=== PATIENT | female | born 1960 | race Caucasian/White ===

== ENCOUNTER 2021-07-26 13:35 | Outpatient (REF) | payer OTHER, SELFPAY ==
--- NOTE | ~2021-07-26 | XR_ITS ---
EXAMINATION: XR SHOULDER, RIGHT CLINICAL INFORMATION: M25.511 - Pain in right shoulder COMPARISON: None TECHNIQUE: Right shoulder is imaged in 3 views. FINDINGS: There is no fracture or dislocation. The acromioclavicular alignment is normal. There is borderline inferior spurring from the AC joint. There are no visible rotator cuff calcifications. There is a small granuloma under 3 mm just below right minor fissure. XR/XR shoulder RT min 2V IMPRESSION: 1. No visible rotator cuff calcifications. 2. Minor inferior spurring AC joint.
== END 2021-07-26 13:36 | disposition home or self-care (01) ==
LOC: HO.HMGCX 13:35
PROVIDERS: PCP Internal Medicine; Visit Provider Family Medicine
DX: Z13.89 Encounter for screening for other disorder (principal)
CPT/HCPCS: 73030

== ENCOUNTER → 2021-08-09 07:53 | Outpatient (BNVA) | payer OTHER, SELFPAY | PROVIDERS: PCP Internal Medicine; Visit Provider Physician Assistant | DX: S46.001A Unspecified injury of muscle(s) and tendon(s) of the rotator cuff of right shoulder, initial encounter (principal); S43.001A Unspecified subluxation of right shoulder joint, initial encounter; Z87.39 Personal history of other diseases of the musculoskeletal system and connective tissue | CPT/HCPCS: 99202 ==

== ENCOUNTER → 2021-09-04 08:36 | Outpatient (BNVA) | payer OTHER, SELFPAY | PROVIDERS: Visit Provider Physician Assistant | DX: M75.51 Bursitis of right shoulder (principal); M77.11 Lateral epicondylitis, right elbow; Z88.6 Allergy status to analgesic agent; Z88.1 Allergy status to other antibiotic agents; Z88.2 Allergy status to sulfonamides; Z88.8 Allergy status to other drugs, medicaments and biological substances | CPT/HCPCS: 99212 ==

== ENCOUNTER 2021-09-26 16:00 | Outpatient (RCR) | payer OTHER, SELFPAY ==
--- NOTE | 2021-08-15 15:28 | MHC.PT.EP ---
[facility] [place] Office [place] Office [place] Office [address] [phone] F: [phone] F: [phone] F: [phone] F: [phone] Physical Therapy Plan of Care Date of Evaluation: Date of Surgery: Diagnosis: right r Assessment: The patient is showing clear signs of cervical radiculopathy demonstrated by weakness in C5-6 myotomes, pain provocation with cervical movements. Her shoulder ROM improved when cervical spine was in neutral. Radicular pain is provoked with cervical movements alone. Using the Fabi method for Mechanical diagnosis and treatment she had a right relevant lateral component which I will address first. She was negative for all RTC special tests. She was able to hold her arm when placed in different positions against gravity. I am going to do cervical movements and stretches initially with posture correction and sleeping position correction. Pt has been educated on signs to stop the exercises. Frequency and Duration: The patient will be seen 2x/week x 4 weeks. Short Term Goals: 1.Pt to able to demonstrate proper sitting posture with the use of a lumbar roll to decrease aggravating factors. 2.Pt to be able to demonstrate proper posture for common leisure activities such as phone/tablet use. 3.For the patient to demonstrate proper upright sitting posture with use of the lumbar roll to improve compliance and carryover. Shelter Goals: 1. Pt to have improved neutral spine awareness to avoid further aggravation of pain. 2. Pt to be able to return demonstrate her HEP to improve compliance and carryover. 1. Pt to be able to return to normal PLOF without limiting pain. 2. Pt to be able to return to overhead reaching without pain or limitation. 3. Pt to be able to manage her pain with selected exercise and stretching regime. Treatment Plan: Modalities to reduce pain, spasms and effusion. Manual therapy to restore motion and function. Therapeutic exercise to improve strength and flexibility. Neuromuscular re-education for posture and balance. Therapeutic activities to return to functional activities of daily living. Electronically signed by: Jennifer Choudhury PT DPT Please sign and return to therapist. Thank you for your referral.
== END 2021-09-27 08:00 | disposition home or self-care (01) ==
LOC: HO.PT 16:00
PROVIDERS: Visit Provider Physician Assistant
DX: S46.001A Unspecified injury of muscle(s) and tendon(s) of the rotator cuff of right shoulder, initial encounter (principal)
CPT/HCPCS: 97014; 97110; 97112; 97140; 97162; 97530

== ENCOUNTER 2021-10-02 14:00 | Outpatient (RCR) | payer OTHER, SELFPAY ==
--- NOTE | 2021-08-14 13:21 | MHC.OT.OEV ---
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 Pt HEARD AN AUDIBLE POP IN HER SHOULDER. XRAYS SHOWED NO VISIBLE ROTATOR CUFF CALCIFICATIONS AND MINOR INFERIOR SPURRING AC JOINT. SHE WAS REFERRED TO [facility] WITH A RIGHT ROTATOR CUFF INJURY AND LATERAL EPICONDYLITIS OF RIGHT ELBOW. MRI TO BE OBTAINED TO FURTHER EVALUATE INTEGRITY OF RTC MUSCLES. 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 HOBBIES: OWNS AND CARES FOR HORSES ON HER PROPERTY, WALKING. Living Situation, Family and/or Social Support: LIVES WITH SPOUSE Current Level of Function and Occupation Self Care, Employment, Leisure: CURRENTLY OUT OF WORK SINCE INJURY; DIFFICULTIES WITH LIFTING, TURNING TO OPEN JAR OR KNOB, PAIN WITH LIFTING COFFEE CUP. UNABLE TO SWEEP OR MOP FLOORS. USING LEFT HAND FOR MOST TASKS. UNABLE TO HORSE BACK RIDE, BRUSH HORSES, BALE HAY OR PLACE SADDLE. Sleep: MODERATE DIFFICULTIES WITH SLEEPING, WAKES OFTEN AT NIGHT FROM PAIN. UNABLE TO SLEEP ON RIGHT SIDE. Driving: DRIVING AUTOMATIC CAR WITH NON-DOMINANT LEFT ARM. UNABLE TO DRIVE STANDARD DUE TO INABILITY TO SHIFT INTO GEARS WITH RUE. Vision: READING GLASSES Pain Assessment Pain Score: 3-8/10 Pain Location and Description: R SHOULDER MOSTLY PAINFREE AT REST, 8-10/10 WITH ACTIVITY AND USE R LATERAL ELBOW 3/10 AT REST, 8-10/10 WITH ACTIVITY AND USE Aggravating Factors: INTERNAL ROTATION OF R SHOULDER, REACHING AND PULLING, CARRYING AND HOLDING ITEMS >2 POUNDS IN RIGHT ARM Alleviating Factors: USING ICE > HEAT, IBUPROPHEN, COUNTERFORCE BRACE, AVOIDING USE Skin and Soft Tissue Assessment Skin and Soft Tissue: Swelling Comments: R LATERAL ELBOW EDEMA Edema Assessment Upper Extremity: Right Impaired Lower Extremity: Comments: EDEMA PRESENT AT RIGHT LATERAL ELBOW Dexterity Assessment Dexterity: Right Impaired Comments: FUNCTIONAL DEXTERITY TEST: RIGHT 29 SECONDS, LEFT 26 SECONDS PAIN THROUGHOUT RUE DURING FINE MOTOR TASKS Special Tests Comments: AROM(PROM) Strength Cervical Cervical Flexion: Cervical Extension: Cervical Lateral Flexion: Cervical Rotation: Comments: R LATERAL NECK PAIN, SEE PT EVAL Shoulder Flexion: R 120, L 135 Extension: Abduction: Internal Rotation: External Rotation: Comments: SEE PT EVAL FOR ADDITIONAL ROM MEASUREMENTS Flexion: Extension: Abduction: Internal Rotation: External Rotation: Comments: Elbow Flexion: R 145, L 160 Extension: R 20, L 0 Pronation: R 85, L 85 Supination: R 70, L 90 Comments: PAIN WITH SUPINATION OF R UE Flexion: Extension: Pronation: Supination: Comments: Wrist Flexion: Extension: Ulnar Deviation: Radial Deviation: Comments: WFL Flexion: Extension: Ulnar Deviation: Radial Deviation: Comments: Thumb Thumb CMC Flexion: Thumb MCP Flexion: Thumb IP Flexion: Radial Abduction: Palmar Abduction: [place] ([place] 0-10): 09/08 B/L'LY Comments: Digits Index MCP: PIP: DIP: Long MCP: PIP: DIP: Ring MCP: PIP: DIP: Small MCP: PIP: DIP: Comments: Gross Grasp: R 12 POUNDS, L 58 POUNDS Lateral Pinch: Two-Point Pinch: Three-Jaw Jerrell: Comments: R 15 POUNDS WITH CFB DONNED Patient Education Primary Language: Bulgarian Exhibit Artist Required: No Current Knowledge: Understands information with skills for self-management Teaching Method: Demonstration Handouts Verbal Education Needs Identified on Evaluation: ADL's Disease Information Equipment Use Exercise Pain Safety How did patient/family demonstrate learning? Patient demonstrates Patient verbalizes Barriers to Learning: None Readiness for Learning: Accepting Who was educated? Patient Comments: Plan of Care Assessment: MS SZYMANSKI IS 3 WEEKS, 5 DAYS SINCE SHE INJURED HER RIGHT UPPER EXTREMITY AT WORK. SHE WAS DIAGNOSED WITH A RIGHT RTC INJURY AND R LATERAL EPICONDYLITIS. MRI PENDING TO FURTHER ASSESS INTEGRITY OF RTC MUSCLES. GENERALLY, SHE REPORTS R ELBOW > R SHOULDER PAIN WITH SOME IMPROVEMENTS IN R SHOULDER PAIN IN THE LAST WEEK OR SO. PATIENT IS SCHEDULED TO HAVE A PT EVALUATION TOMORROW, 9/16/21 FOR HER RIGHT SHOULDER. SHE PURCHASED A COUNTERFORCE BRACE AND STATES SOME RELIEF WHEN WORN DURING IADLs. WILL CONTINUE TO ASSESS NEEDS FOR RIGHT WRIST ORTHOSIS FOR NIGHT WEAR, AT FOLLOW-UP SESSIONS. AN 86% LIMITATION IS REPORTED PER THE QUICK DASH ASSESSMENT. ONGOING SKILLED OT IS WARRANTED TO ADDRESS STRENGTH, ROM, EDEMA, PATIENT EDUCATION, ORTHOSIS EDUCATION AND WORK CONDITIONING. STG Duration: 3 WEEKS Short Term Goals: IND HEP IND USE OF HEAT/ICE IND JOINT PROTECTION AND ACTIVITY MODIFICATION IND EDEMA MANAGEMENT AND SELF TAPING STRATEGIES REPORT PAIN <5/10 WITH ADLs AND LIGHT IADLs DEXTERITY TO FUNCTIONAL LEVEL PER FUNCTIONAL DEXTERITY TEST (<26 SECONDS) LTG Duration: 6 WEEKS Mcfp Goals: QUICKDASH <60% REPORT PAINFREE AT REST AND <3/10 PAIN WITH IADLs R GROSS GRASP >50 POUNDS R ELBOW EXT TO NEUTRAL, FLEXION TO 155 R SUPINATION TO 85 DEGREES REPORT MILD DIFFICULTIES WITH SLEEPING TOLERATE LIFTING TASKS, SHOULDER ALLOWS, UP TO 20 POUNDS WITH <3/10 PAIN Frequency and Duration: The patient will be seen 2X/WEEK FOR 6 WEEKS Treatment Plan: Therapeutic Exercise Therapeutic Activity Home Exercise Program Splinting Neuro Re-ed Patient Education Desensitization/Sensory Re-ed Edema Control ADL Training Ultrasound NMES Iontophoresis Paraffin Fluidotherapy MHP Cold Packs Joint Mobilization Soft Tissue Mobilization Kinesiotaping Electronically Signed By: ABIODUN MITCHELL OTR/Violet Reviewed/agree with student documentation: N/A Therapist: Please sign and return to therapist, Thank you for your referral.
--- NOTE | 2021-10-02 14:45 | MHC.OT.DC ---
[address] [phone] F: [phone] Occupational Therapy Discharge Note Provider: GLORIA Morrison Diagnosis: LATERAL EPICONDYLITIS OF RIGHT ELBOW Date of Evaluation: 08/14/21 Date of Discharge: 10/02/21 Treatments to Date: 8 Discharge Status: Achieved Goals Improved Function Independent with HEP Discharge Summary: Eliz is 8 weeks s/p right arm strain w/ acute lateral epicondylitis. She is progressing well w/ increasing range and strength, strength still limited about 50%. QD score 23 and pt participates in most home activities, including caring for her horses, but submaximal level ( assists w/ hay bails). 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 May be able to progress to full duty in another 1-2 weeks. Electronically Signed By: Sharon Tillman OTR/L Reviewed/agree with student documentation: N/A Therapist: Please Sign and return to therapist, thank you for your referral.
== END 2021-10-02 14:46 | disposition home or self-care (01) ==
LOC: HO.OT 14:00
PROVIDERS: Visit Provider Physician Assistant
DX: S46.001D Unspecified injury of muscle(s) and tendon(s) of the rotator cuff of right shoulder, subsequent encounter (principal)
CPT/HCPCS: 97035; 97110; 97140; 97166

== ENCOUNTER → 2021-10-30 09:44 | Outpatient (BNVA) | payer OTHER, SELFPAY | PROVIDERS: Visit Provider Physician Assistant | DX: M65.9 Synovitis and tenosynovitis, unspecified (principal) | CPT/HCPCS: 99212 ==

== ENCOUNTER 2021-11-11 08:01 | Outpatient (RCR) | payer OTHER, SELFPAY | END 2021-12-25 14:35 | disposition home or self-care (01) | LOC: HO.OT 08:01 | PROVIDERS: Visit Provider Physician Assistant | DX: M65.9 Synovitis and tenosynovitis, unspecified (principal) | CPT/HCPCS: 29125; 97110; 97165; 97760 ==